=== PATIENT | female | born 1995 | race Caucasian/White ===

== ENCOUNTER 2017-03-09 07:04 | Emergency (ER) | payer BC ==
[2017-03-09] MEDS ORDERED: ACETAMINOPHEN 325 MG TABLET PO ONE (07:47)
--- NOTE | 2017-03-09 08:09 | ER Document Report ---
HPI - HPI Patient complains to provider of: mouth sore Onset: Last week Onset/Duration: Gradual Quality of pain: Burning Pain Level: 2 Context: Patient complains of tender mouth sore inside lower lip and inside a left buccal mucosa. Patient reports fever of 101 at home. Patient reports tender lymph nodes in the neck for the past week. Associated Symptoms: Fever, Sore throat. denies: Nausea Exacerbated by: Denies Relieved by: Denies Similar symptoms previously: Yes Recently seen / treated by doctor: No - ROS ROS below otherwise negative: Yes Systems Reviewed and Negative: Yes All other systems reviewed and negative - CONSTITUTIONAL Constitutional: REPORTS: Fever - EENT Notes: Mouth ulcer - NEURO Neurology: DENIES: Headache - CARDIOVASCULAR Cardiovascular: DENIES: Chest pain - RESPIRATORY Respiratory: DENIES: Trouble Breathing, Coughing - GASTROINTESTINAL Gastrointestinal: DENIES: Abdominal Pain, Nausea, Patient vomiting, Diarrhea - REPRODUCTIVE LMP: february 09 - MUSCULOSKELETAL Musculoskeletal: REPORTS: Neck Pain - Tender lymph nodes in neck. DENIES: Extremity pain, Back Pain - DERM Skin Color: Normal Skin Problems: None Past Medical History - General Information source: Patient, Parent - Social History Smoking Status: Never Smoker Chew tobacco use (# tins/day): No Frequency of alcohol use: None Drug Abuse: None Occupation: student Lives with: Family Family History: Reviewed & Not Pertinent Neurological Medical History: Reports: Hx Migraine Renal/ Medical History: Denies: Hx Peritoneal Dialysis Psychiatric Medical History: Reports: Hx Anxiety, Hx Depression Past Surgical History: Reports: Hx Adenoidectomy, Hx Tonsillectomy Vertical Provider Document - CONSTITUTIONAL Agree With Documented VS: Yes Exam Limitations: No Limitations General Appearance: WD/WN, No Apparent Distress - HEENT HEENT: Atraumatic, Normocephalic. negative: Pharyngeal Exudate, Pharyngeal Tenderness, Pharyngeal Erythema, Tympanic Membrane Red, Tympanic Membrane Bulging Mouth Diagram: 1 - leukoplakia 2 - tender ulceration - NECK Neck: Normal Inspection, Supple. negative: Lymphadenopathy-Left, Lymphadenopathy-Right - RESPIRATORY Respiratory: Breath Sounds Normal, No Respiratory Distress, Chest Non-Tender O2 Sat by Pulse Oximetry: 100 - CARDIOVASCULAR Cardiovascular: Regular Rate, Regular Rhythm, No Murmur - MUSCULOSKELETAL/EXTREMETIES Musculoskeletal/Extremeties: MAEW - NEURO Level of Consciousness: Awake, Alert, Appropriate Motor/Sensory: No Motor Deficit - DERM Integumentary: Warm, Dry Course - Vital Signs Vital signs: Temp Pulse Resp BP Pulse Ox 98.9 F 77 16 118/76 100 03/09/17 07:10 03/09/17 07:10 03/09/17 07:10 03/09/17 07:10 03/09/17 07:10 - Laboratory Laboratory results interpreted by me: 03/09/17 08:30 Labs- Entire Visit 03/09/17 07:45 Group A Strep Rapid NEGATIVE Discharge - Discharge Clinical Impression: Mouth sore Condition: Stable Disposition: HOME, SELF-CARE Instructions: Mouth Sores ([facility]), Anti-Inflammatory Medication ([facility]) Additional Instructions: Return immediately for any new or worsening symptoms Followup with your primary care provider, call tomorrow to make a followup appointment Follow-up with your dentist for further evaluation of sores inside mouth. Avoid citrus food or drinks Prescriptions: Nystatin/Dexameth/Diphen [Magic Mouthwash ([facility] Formula) Susp] 5 ml PO QID #120 ml Referrals: [facility] [Provider Group] - Follow up as needed
[2017-03-09 08:55] VITALS: BP 102/57
== END 2017-03-09 08:55 | disposition home or self-care (01) ==
LOC: ER 07:04
DX: K12.1 Other forms of stomatitis (principal); K13.21 Leukoplakia of oral mucosa, including tongue; R50.9 Fever, unspecified; J02.9 Acute pharyngitis, unspecified
CPT/HCPCS: 87070; 87880; 99283